=== PATIENT | female | born 1945 | race Caucasian/White ===

== ENCOUNTER 2021-05-11 09:35 | Inpatient (IN) | payer OTHER ==
[2021-05-11 09:50] VITALS: BMI 31.2
[2021-05-11] MEDS ORDERED: morphine CARPU-JECT 2 MG/1 ML DISP.SYRIN IVPUSH ONE (10:35)
[2021-05-11] MEDS ORDERED: morphine SULFATE 4 MG/ML VIAL ONE ×3 (10:37→18:32)
[2021-05-11 10:52] LABS: BASO % 0.9 % (0-2.0); EOS % 0.8 % (0-4.5); HEMATOCRIT 43.6 % (32.4-45.2); HEMOGLOBIN 15.1 GM/dL (10.7-15.3); LYMPH % 32.3 % (8-40); MCH 32.9 pg (25.7-33.7); MCHC 34.5 g/dl (32.0-36.0); MEAN CELL VOLUME 95.4 fl (80-96); MONO % 9.1 % (3.8-10.2); NEUT % 56.9 % (42.8-82.8); PLATELET COUNT 164 10^3/uL (134-434); RBC 4.57 M/mm3 (3.60-5.2); RDW 13.3 % (11.6-15.6); WHITE BLOOD COUNT 8.9 K/mm3 (4.0-10.0)
[2021-05-11 10:59] LABS: INR 1.07 (0.83-1.09); PROTHROMBIN TIME (PATIENT) 12.5 SEC (9.7-13.0)
[2021-05-11 11:10] LABS: CHLORIDE 103 mmol/L (98-107); SODIUM 137 mmol/L (136-145)
[2021-05-11 11:12] LABS: CALCIUM 8.4 mg/dL (8.5-10.1)
[2021-05-11 11:13] LABS: ALBUMIN 3.1 g/dl (3.4-5.0); ANION GAP 4 MMOL/L (8-16); BLOOD UREA NITROGEN 11.7 mg/dL (7-18); CO2 30 mmol/L (21-32); GLUCOSE,RANDOM 228 mg/dL (74-106)
[2021-05-11] MEDS ORDERED: morphine CARPU-JECT 4 MG/1 ML DISP.SYRIN IVPUSH ONE (11:13)
[2021-05-11 11:16] LABS: CREATININE 0.9 mg/dL (0.55-1.3); SGOT/AST 42 U/L (15-37); SGPT/ALT 48 U/L (13-61)
[2021-05-11 11:19] LABS: ALK PHOS 195 U/L (45-117); BILIRUBIN,TOTAL 0.4 mg/dL (0.2-1); TOT PROT 6.9 g/dl (6.4-8.2)
[2021-05-11] MEDS ORDERED: PANTOPRAZOLE SODIUM 40 MG VIAL IVPUSH ONE (12:45)
[2021-05-11] MEDS ORDERED: PANTOPRAZOLE SODIUM 40 MG/100 ML BAG IVPB ONE (13:24)
[2021-05-11] MEDS ORDERED: ACETAMINOPHEN 325 MG TABLET (FP) PO PRN (14:13)
[2021-05-11] MEDS ORDERED: ONDANSETRON 4 MG/2 ML VIAL ONE (14:34)
[2021-05-11] MEDS: ONDANSETRON 4 MG/2 ML VIAL IVPUSH PRN (14:43)
[2021-05-11] MEDS ORDERED: ENALAPRIL MALEATE 5 MG TABLET ONE (16:41)
[2021-05-11] MEDS ORDERED: PT OWN MED DRAWER 7, Y5N ONE (16:41)
[2021-05-11] MEDS ORDERED: amLODIPine BESYLATE 5 MG TABLET (FP) ONE (16:41)
[2021-05-11] MEDS ORDERED: ACETAMINOPHEN INJECTION 100 ML IVPB ONE (16:42)
[2021-05-11] MEDS: INSULIN SLIDING SCALE (NOVOLOG) 1 VIAL SQ SCH ×2 (18:25→22:54)
[2021-05-11] MEDS: NEBIVOLOL 5 MG TABLET (FP) PO SCH (18:26)
[2021-05-11] MEDS: ENALAPRIL MALEATE 10 MG TABLET PO SCH (18:26)
[2021-05-11] MEDS: amLODIPine BESYLATE 5 MG TABLET (FP) PO SCH (18:26)
[2021-05-11] MEDS: morphine CARPU-JECT 2 MG/1 ML DISP.SYRIN IVPUSH PRN (18:40)
[2021-05-11] MEDS ORDERED: ACETAMINOPHEN 1000 MG/100 ML VIAL IVPB ONE (19:05)
[2021-05-11] MEDS ORDERED: SODIUM CHLORIDE 0.45%/POT 20 MEQ/1,000 ML INFUS.BAG IV SCH (19:45)
[2021-05-11] MEDS ORDERED: ATORVASTATIN CA 40 MG TABLET (FP) PO SCH (22:00)
[2021-05-11] MEDS ORDERED: INSULIN (LEVEMIR) 100 UNITS/ML UNITS SQ SCH (22:00)
[2021-05-11] MEDS ORDERED: HEPARIN NA (PORCINE) 5,000 UNITS/ML 1ML VIAL SQ SCH (22:00)
[2021-05-11] MEDS ORDERED: ATORVASTATIN CA 40 MG TABLET (FP) ONE (22:29)
[2021-05-11] MEDS ORDERED: HEPARIN NA (PORCINE) 5,000 UNITS/ML 1ML VIAL ONE (22:29)
[2021-05-11 22:57] LABS: CHOLESTEROL 200 mg/dL (50-200); TRIGLYCERIDES 180 mg/dL (0-150)
[2021-05-11 22:58] LABS: LDL CHOLESTEROL (ONLY SJRH) 115 mg/dL (5-100)
[2021-05-11 22:59] LABS: HDL CHOLESTEROL 50 mg/dL (40-60)
[2021-05-11 23:01] LABS: N-TERMINAL BNP 88.1 pg/ml (5-450)
[2021-05-12 06:55] LABS: BASO % 0.7 % (0-2.0); EOS % 0.1 % (0-4.5); HEMATOCRIT 45.5 % (32.4-45.2); HEMOGLOBIN 15.3 GM/dL (10.7-15.3); LYMPH % 15.3 % (8-40); MCH 32.5 pg (25.7-33.7); MCHC 33.6 g/dl (32.0-36.0); MEAN CELL VOLUME 96.9 fl (80-96); MEAN PLT VOLUME 11.8 fl (7.5-11.1); NEUT % 76.9 % (42.8-82.8); PLATELET COUNT 160 10^3/uL (134-434); RBC 4.69 M/mm3 (3.60-5.2); RDW 13.1 % (11.6-15.6); WHITE BLOOD COUNT 15.8 K/mm3 (4.0-10.0)
[2021-05-12 07:15] LABS: CHLORIDE 103 mmol/L (98-107); SODIUM 138 mmol/L (136-145)
[2021-05-12 07:17] LABS: ALBUMIN 3.4 g/dl (3.4-5.0); ANION GAP 9 MMOL/L (8-16); BLOOD UREA NITROGEN 12.8 mg/dL (7-18); CALCIUM 8.8 mg/dL (8.5-10.1); CO2 26 mmol/L (21-32); GLUCOSE,RANDOM 149 mg/dL (74-106)
[2021-05-12 07:20] LABS: CREATININE 0.8 mg/dL (0.55-1.3); SGOT/AST 80 U/L (15-37); SGPT/ALT 54 U/L (13-61)
[2021-05-12 07:22] LABS: BILIRUBIN,TOTAL 0.7 mg/dL (0.2-1); TOT PROT 7.3 g/dl (6.4-8.2)
[2021-05-12 07:23] LABS: ALK PHOS 209 U/L (45-117)
[2021-05-12] MEDS ORDERED: morphine SULFATE 4 MG/ML VIAL ONE (08:06)
[2021-05-12] MEDS ORDERED: ASPIRIN 81 MG CHEWABLE TABLETS ONE (08:06)
[2021-05-12] MEDS: morphine CARPU-JECT 2 MG/1 ML DISP.SYRIN IVPUSH PRN (08:12)
[2021-05-12] MEDS ORDERED: ONDANSETRON 4 MG/2 ML VIAL ONE (08:14)
[2021-05-12] MEDS: ONDANSETRON 4 MG/2 ML VIAL IVPUSH PRN (08:19)
[2021-05-12] MEDS ORDERED: ATORVASTATIN CA 40 MG TABLET (FP) PO ONE (08:27)
[2021-05-12] MEDS ORDERED: PANTOPRAZOLE 40 MG TABLET PO SCH (10:00)
[2021-05-12] MEDS ORDERED: ENOXAPARIN NA (PORCINE) 80 MG/0.8 ML DISP.SYRIN SQ SCH (10:00)
[2021-05-12] MEDS ORDERED: PANTOPRAZOLE 40 MG TABLET ONE (10:17)
[2021-05-12] MEDS ORDERED: ENALAPRIL MALEATE 5 MG TABLET ONE (10:17)
[2021-05-12] MEDS ORDERED: ENOXAPARIN NA (PORCINE) 80 MG/0.8 ML DISP.SYRIN SQ ONE (10:18)
[2021-05-12] MEDS ORDERED: PT OWN MED DRAWER 7, Y5N ONE (10:18)
[2021-05-12] MEDS ORDERED: amLODIPine BESYLATE 5 MG TABLET (FP) ONE (10:18)
[2021-05-12 10:23] LABS: LIPASE 68 U/L (73-393)
[2021-05-12] MEDS: ENALAPRIL MALEATE 10 MG TABLET PO SCH (10:26)
[2021-05-12] MEDS: amLODIPine BESYLATE 5 MG TABLET (FP) PO SCH (10:26)
[2021-05-12] MEDS ORDERED: NEBIVOLOL 10 MG TABLET (FP) PO SCH (10:34)
[2021-05-12] MEDS ORDERED: amLODIPine BESYLATE 10 MG TABLET (FP) PO SCH (10:34)
[2021-05-12] MEDS: NEBIVOLOL 5 MG TABLET (FP) PO SCH (10:40)
[2021-05-12] MEDS: INSULIN SLIDING SCALE (NOVOLOG) 1 VIAL SQ SCH (11:38)
[2021-05-12 12:01] VITALS: BP 160/65
[2021-05-12 12:06] VITALS: PULSE 65; TEMP 98
[2021-05-13] MEDS ORDERED: ATORVASTATIN CA 40 MG TABLET (FP) PO SCH (22:00)
== END 2021-05-12 12:00 | disposition home or self-care (01) | DRG 282 ==
LOC: JER 09:35 → UNDOADMOB 11:23 → JERBED 11:23 → INTOOBSV 11:23 → JERBED 14:13 → OBSVTOIN 05-12 11:28
PROVIDERS: ADMIT Internal Medicine
DX: I21.4 Non-ST elevation (NSTEMI) myocardial infarction (principal); I10 Essential (primary) hypertension; E11.9 Type 2 diabetes mellitus without complications; K21.9 Gastro-esophageal reflux disease without esophagitis; R07.89 Other chest pain; E66.9 Obesity, unspecified; Z68.31 Body mass index [BMI] 31.0-31.9, adult; F41.9 Anxiety disorder, unspecified; I25.10 Atherosclerotic heart disease of native coronary artery without angina pectoris; R11.2 Nausea with vomiting, unspecified; D72.829 Elevated white blood cell count, unspecified
CPT/HCPCS: 36415; 71275-TC; 74174-TC; 80053; 80061; 82550; 82553; 82962; 83036; 83690; 83880; 84443; 84484; 85025; 85610; 86850; 86900; 86901; 93005; 93010; 99285-25; C9803; G0378; J0131; J1644; J3480; U0003; U0005